=== PATIENT | female | born 1930 | race Caucasian/White ===

== ENCOUNTER → 2017-11-12 | Outpatient (CLI) | payer MEDICARE, BC ==
[~2017-11-12] MED LIST: Multiple Vitam1 EAC1; Prinivil10 MG PO; RALO60 PO; SIMV10 PO; TRIHYD253A PO; VITAMIN D-32000 UNIT; Vitamin C1000 M1
== END | disposition home or self-care (01) ==
LOC: LAB 14:01 → LAB SHORT 14:01
PROVIDERS: Obstetrics & Gynecology Gynecology
DX: Z91.89 Other specified personal risk factors, not elsewhere classified (principal)
CPT/HCPCS: 87624; G0123

== ENCOUNTER → 2020-09-07 | Outpatient (CLI) | payer MEDICARE ==
[2020-09-07 21:44] LABS: Creatinine, Urine Random 65.9 mg/dL (27.00-270.00); Microalb/Creat Ratio UR, Rand 98.786 mg/g (0.000-30.000); Microalbumin, Random Urine 65.1 mg/L (0.000-20.000)
== END | disposition home or self-care (01) ==
LOC: LAB 15:34 → LAB SHORT 15:34
PROVIDERS: Hospitalist
DX: I10 Essential (primary) hypertension (principal)
CPT/HCPCS: 82043; 82570